=== PATIENT | male | born 1985 | race Two or more races ===

== ENCOUNTER 2017-10-17 04:17 | Emergency (ER) | payer OTHER ==
[~2017-10-17] VITALS: Ht 175.3 cm; Wt 99.8 kg
[2017-10-17 07:57] VITALS: BP 126/76
== END 2017-10-17 08:54 | disposition home or self-care (01) ==
LOC: ER 04:24
DX: S00.83XA Contusion of other part of head, initial encounter (principal); W22.8XXA Striking against or struck by other objects, initial encounter; Y93.89 Activity, other specified; Y92.89 Other specified places as the place of occurrence of the external cause; Y99.8 Other external cause status